=== PATIENT | female | born 1965 | race Caucasian/White ===

== ENCOUNTER 2020-09-28 12:29 | Emergency (ER) | payer OTHER, SELFPAY ==
[2020-09-28 12:40] VITALS: BP 167/107; PULSE 74; RESP 16; TEMP 37.1; O2SAT 97; BMI 39.8
--- NOTE | 2020-09-28 12:58 | PC.NURSE ---
gel foam, 2x2 gauze and coban applied to L thumb for pressure dressing per ER MD direction. will continue to monitor
--- NOTE | 2020-09-28 13:30 | HMH.EDGENADL ---
ED Disposition Clinical Impression: Avulsion of skin of thumb Qualifiers: Encounter type: initial encounter Laterality: left Qualified Code(s): S61.002A - Unspecified open wound of left thumb without damage to nail, initial encounter Disposition: Home, Self-Care Condition on Discharge: Good Additional Instructions: Keep bandage on for 2 days, then remove and begin gently cleaning with soap and water daily. Recheck by primary care provider in 4 to 5 days. Elevate your hand today. Tylenol for pain. Return to the emergency room if you bleed through your bandage. Referrals: Mal Funk MD [Primary Care Provider] - - Critical Care Critical Care Time: No Attestation: On 09/28/20, the high probability of a clinically significant, sudden or life threatening deterioration of the following system(s) required my full and direct attention, intervention and personal management. The time I documented below is in addition to time spent performing reported procedures but includes the following listed in this critical care notation. Medical Decision Making - Yuri Inquiry Pt receiving controlled substance: No Vital Signs: 09/28/20 12:40 09/28/20 13:44 09/28/20 14:07 Temperature 98.7 F Temperature Source Oral Pulse Rate [Right Radial] 74 71 61 Respiratory Rate 16 16 Blood Pressure [Right Arm] 167/107 H 145/98 H 148/95 H Blood Pressure Mean [Right Arm] 127 113 112 Blood Pressure Source [Right Arm] Automatic Cuff Automatic Cuff Automatic Cuff Blood Pressure Position [Right Arm] Sitting Sitting Sitting 02 Sat by Pulse Oximetry 97 97 96 Oxygen Delivery Method Room Air Room Air Room Air Orders (Tests/Meds): ED MEDICATIONS Discontinued Medications Generic Name Dose Route Start Last Admin Trade Name Freq PRN Reason Stop Dose Admin Gelatin 1 each 09/28/20 12:54 09/28/20 12:57 Gelatin Absorbable Sponge (Size 4) TP 09/28/20 12:55 1 each ONCE ONE Administration Tetanus/Reduced Diphtheria/Acell Pertussis 0.5 ml 09/28/20 12:53 09/28/20 13:23 Tet/Diphth/Pert-Adult 0.5ml Syringe IM 09/28/20 12:54 0.5 ml .ONCE ONE Administration - Reevaluation(s) Time: 13:38 Reevaluation #1: Bandag is dry, has not bled through bandage at this time. Time: 14:13 Reevaluation #3: Bandage remains dry General Adult HPI - General Chief complaint: Skin/Abscess/Foreign Body Stated complaint: AO 1225 lac to L thumb Time Seen by Provider: 09/28/20 13:25 Mode of Arrival: Ambulatory Limitations: No Limitations Description of Symptoms (Recalled from ER Triage Doc. by RN): Pt reports she cut her finger on a slicer lastnight approx 8:30pm. Pt has an avulsed area to L thumb. Pt reports unable to get area to stop bleeding. Pt states she is not on blood thinners. Pt was seen at urgent care at [place] today and was sent to ER for further evaluation. - History of Present Illness HPI narrative: Cut her left thumb on a mandolin while slicing vegetables yesterday evening. She has had bleeding off and on since then. She went to urgent care this morning and they told her it could not be sutured to come to the emergency department. Her last tetanus immunization is unknown. - Related Data Home Medications Medication Instructions Recorded Confirmed ALPRAZolam [Alprazolam 0.25mg 0.25 mg PO DIRECTED 09/28/20 09/28/20 Tab] Atorvastatin Calcium [Lipitor 20mg 20 mg PO HS 09/28/20 09/28/20 Tab] Desvenlafaxine Succinate [Pristiq] 50 mg PO DIRECTED 09/28/20 09/28/20 Ferrous Sulfate [High Potency Iron] 27 mg PO DIRECTED 09/28/20 09/28/20 Metoprolol Succinate [Metoprolol 100 mg PO DAILY 09/28/20 09/28/20 Succinate 100mg Tablet*] Allergies Allergy/AdvReac Type Severity Reaction Status Date / Time No Known Allergies Allergy Verified 09/28/20 12:49 [facility] History - Hepatitis A Screen Drug use history?: No High risk sexual behaviors?: No History of sexually transmitted i
[2020-09-28 13:44] VITALS: BP 145/98; PULSE 71; RESP 16; O2SAT 97
[2020-09-28 14:07] VITALS: BP 148/95; PULSE 61; O2SAT 96
[2020-09-28 14:17] VITALS: BP 148/95; PULSE 58; RESP 18; TEMP 37.1; O2SAT 96
== END 2020-09-28 14:18 | disposition home or self-care (01) ==
PROVIDERS: Emergency Provider Emergency Medicine; PCP Family Medicine
DX: S61.002A Unspecified open wound of left thumb without damage to nail, initial encounter (principal); W26.8XXA Contact with other sharp object(s), not elsewhere classified, initial encounter; Y92.019 Unspecified place in single-family (private) house as the place of occurrence of the external cause; Z23 Encounter for immunization
CPT/HCPCS: 90715; 99282

== ENCOUNTER → 2021-04-28 09:44 | Outpatient (CLI) | payer OTHER, SELFPAY ==
--- NOTE | 2021-04-28 09:54 | MM_ITS ---
PROCEDURE: MM DIG SCREENING MAMM BI W/CAD Digital Breast Tomosynthesis Included CLINICAL INDICATION: SCREENING COMPARISON: MG SCREENING MAMMOGRAPHY BILATERAL 3D from 04/23/2020 TECHNIQUE: Standard CC and MLO images and 3D Tomosynthesis was obtained. R2 CAD reviewed. FINDINGS: Average fibroglandular tissue. No malignant appearing mass or malignant-appearing microcalcification. The benign-appearing nodular density is present in the outer aspect of the left breast at 5 mm not significantly changed. IMPRESSION: Benign findings, no evidence of malignancy BI-RAD Category: 2 Benign Finding FOLLOW-UP: 1 YR 1 Year Follow-up (A letter has been sent to the patient regarding results of the study.) Dictated by: Surendra Gooden MD 05/01/2021 12:38 Surendra Gooden MD in [place] 05/01/2021 12:38
== END ==
PROVIDERS: PCP Family Medicine; Visit Provider Family Medicine
DX: Z12.31 Encounter for screening mammogram for malignant neoplasm of breast (principal)
CPT/HCPCS: 77063; 77067

== ENCOUNTER 2021-07-10 11:02 | Emergency (ER) | payer OTHER, SELFPAY ==
[2021-07-10 11:03] VITALS: BP 143/91; PULSE 61; RESP 18; TEMP 37; O2SAT 98; BMI 37.9
--- NOTE | 2021-07-10 12:03 | HMH.EDUTC ---
[facility] [place] Clinical Impression: Bronchitis Sinusitis Qualifiers: Sinusitis location: unspecified location Chronicity: unspecified Qualified Code(s): J32.9 - Chronic sinusitis, unspecified Disposition: Home, Self-Care Condition on Discharge: Good Instructions: Sinusitis, Acute Bronchitis, DI for Sinusitis Additional Instructions: *Monitor Temp, Over the counter Motrin or Tylenol as directed/as needed Tylenol every 4 hours and Motrin every 6 hours (as long as your family doctor has told you that you can take it) for fever or pain. and straight to ER if unable to lower temp less than 101.0 after medication given *Warm salt water gargles may help to soothe the throat *Throat Lozenges *Warm fluids like tea with honey may help to soothe the throat *Sleep elevated *Humidifier/Vaporizer Your throat swab was sent for culture. Those results are typically sent to your primary care. Be sure to follow up in 2-3 days with your family doctor/primary care physician if no improvement so they can review those result and treat if necessary. If you don?t have a primary care doctor, I recommend you get one but in the mean time, you will have to return to a walk in clinic Follow up IMMEDIATELY for new or worsening symptoms or no Noticeable improvement over the next 48-72 hours. 911 for difficulty breathing or swallowing You were tested for today for COVID19 your test result should be back in the next 24-48 hours, you was given a handout on how to log onto the [facility] portal to get your results if you have trouble logging in you may call You was given a handout with instructions for Self Quarantine and Self isolation for while you wait on test results and what to do if they are positive If you are positive the Health Dept will be contacting you also Make sure to take your Vitamins Vit. C Vit D and Zinc if you can take them Prescriptions: predniSONE [Deltasone 10mg tablet] 10 mg PO BID 5 Days #10 tab Transmission Status: Received by [id number] Azithromycin [Z-Herman 250mg Tab] 250 mg PO DIRECTED #6 tab Transmission Status: Received by [id number] Referrals: Mal Funk MD [Primary Care Provider] - As needed Medical Decision Making - Yuri Inquiry Pt receiving controlled substance: No Yuri was queried for this patient: No Vital Signs: 07/10/21 11:03 07/10/21 12:43 Temperature 98.6 F 98.6 F Temperature Source Oral Pulse Rate 61 Pulse Rate [Right Radial] 61 Respiratory Rate 18 18 Blood Pressure 143/91 H Blood Pressure [Right Arm] 143/91 H Blood Pressure Mean [Right Arm] 108 02 Sat by Pulse Oximetry 98 Oxygen Delivery Method Room Air - Lab Data Lab results reviewed: Yes: I reviewed the patient's lab results. Lab Results 07/10/21 12:10: Strep Scn Rapid Clinic Negative Orders (Tests/Meds): ORDERS Category Date Time Status Strep Screen Confirmation Stat Micro 07/10/21 12:10 Received Medical Decision Narrative: Patient states that she has taken azithromycin and prednisone in the past without complications or reactions [facility] [place] - General Stated complaint: chest congestion, cough Time Seen by Provider: 07/10/21 12:03 Mode of Arrival: Ambulatory Source of Information: Patient Limitations: No Limitations Description of Symptoms (Recalled from Triage Doc. 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
[2021-07-10 12:26] LABS: UTC Strep Screen (Rapid) Negative (Negative)
[2021-07-10 12:43] VITALS: BP 143/91; PULSE 61; RESP 18; TEMP 37; O2SAT 98
== END 2021-07-10 12:44 | disposition home or self-care (01) ==
PROVIDERS: Emergency Provider Nurse Practitioner; PCP Family Medicine
DX: J40 Bronchitis, not specified as acute or chronic (principal); J32.9 Chronic sinusitis, unspecified
CPT/HCPCS: 87880; 99203; C9803; G0463; U0003; U0005

== ENCOUNTER 2021-11-05 09:23 | Emergency (ER) | payer OTHER, SELFPAY ==
[2021-11-05 09:36] VITALS: BP 201/109; PULSE 84; RESP 16; TEMP 37.2; O2SAT 95; BMI 39.8
[2021-11-05 09:52] LABS: UTC Influenza A Antigen Negative (Negative); UTC Influenza B Antigen Negative (Negative)
--- NOTE | 2021-11-05 10:16 | HMH.EDUTC ---
[facility] [place] Impression: Viral syndrome, Exposure to COVID-19 virus Pharyngitis Qualifiers: Pharyngitis/tonsillitis etiology: unspecified etiology Qualified Code(s): J02.9 - Acute pharyngitis, unspecified Disposition: Home, Self-Care Condition on Discharge: Good Instructions: DI for COVID-19 (Suspected or Confirmed ), Preventing the Spread of Coronavirus Discharge Instructions Additional Instructions: Drink plenty of fluids. Take tylenol or ibuprofen for pain or fever. Take the medications as directed. Follow up with your regular doctor. GO TO THE ER FOR ANY WORSENING SYMPTOMS Quarantine until you know the results of your covid-19 test. Notify your school or workplace of your results and follow their instructions regarding return to work/school. The cough medication (promethazine dm) will make you drowsy, so don't drive or operate heavy machinery after taking it. Prescriptions: Promethazine/Dextromethorphan [Promethazine-Dm Syrup] 5 ml PO Q6HP PRN #240 ml PRN Reason: Cough Transmission Status: Received by [id number] Ondansetron [Zofran 4mg ODT] 4 mg PO Q8HP PRN #20 tab PRN Reason: Nausea Transmission Status: Received by [facility] Azithromycin [Z-Herman 250mg Tab*] 250 mg PO UD DOSE PK #6 tab Transmission Status: Received by [id number] Referrals: Mal Funk MD [Primary Care Provider] - Forms: Work/School Release Time of Disposition: 10:24 Medical Decision Making - Medical Records Medical records reviewed: No: I reviewed the patient's medical records. - Yuri Inquiry Pt receiving controlled substance: No Vital Signs: 11/05/21 09:36 Temperature 98.9 F Temperature Source Oral Pulse Rate [Left] 84 Respiratory Rate 16 Blood Pressure [Right Arm] 201/109 H Blood Pressure Mean [Right Arm] 139 02 Sat by Pulse Oximetry 95 - Lab Data Lab results reviewed: Yes: I reviewed the patient's lab results. Lab Results 11/05/21 09:50: Influenza Type A Ag Negative, Influenza Type B Ag Negative Orders (Tests/Meds): ORDERS Category Date Time Status Covid-19 Nasal PCR ([facility]) Routine Lab 11/05/21 09:49 Received Strep Scrn Group A (Rapid) Stat Lab 11/05/21 09:50 Received [facility] [place] - General Stated complaint: covid exposed, fever, cough, body aches, h/a Time Seen by Provider: 11/05/21 10:16 Mode of Arrival: Ambulatory Source of Information: Patient Limitations: No Limitations Description of Symptoms (Recalled from Triage Doc. by RN): pt c/o fever, ODOM, congestion, cough, weakness, nausea and loss of appetite x3 days. HEENT Symptoms (Recalled from RN notes): Yes (ODOM and congestion) Resp Symptoms (Recalled from RN notes): Yes (cough) Skin Symptoms (Recalled from RN notes): No MS Symptoms (Recalled from RN notes): No Functional Status (Recalled from RN notes): wnl - History of Present Illness Provider Complaint: She states that for the past 3 days she has had chest congestion, sore throat, sinus congestion, chills, fever and body aches. She has been fully vaccinated against covid-19. She denies any shortness of breath. She denies any known exposure to covid-19. - Related Data Home Medications Medication Instructions Recorded Confirmed ALPRAZolam [Alprazolam 0.25mg 0.25 mg PO DIRECTED 09/28/20 09/28/20 Tab] Atorvastatin Calcium [Lipitor 20mg 20 mg PO HS 09/28/20 09/28/20 Tab] Desvenlafaxine Succinate [Pristiq] 50 mg PO DIRECTED 09/28/20 09/28/20 Ferrous Sulfate [High Potency Iron] 27 mg PO DIRECTED 09/28/20 09/28/20 Metoprolol Succinate [Metoprolol 100 mg PO DAILY 09/28/20 09/28/20 Succinate 100mg Tablet*] Previous Rx's Medication Instructions Recorded Azithromycin [Z-Herman 250mg Tab] 250 mg PO DIRECTED #6 tab 07/10/21 predniSONE [Deltasone 10mg tablet] 10 mg PO BID 5 Days #10 tab 07/10/21 Azithromycin [Z-Herman 250mg Tab*] 250 mg PO UD DOSE PK #6 tab 11/05/21 Ondansetron [Zofran 4mg
[2021-11-05 10:42] VITALS: BP 190/95; PULSE 79; RESP 20; TEMP 37.6
[2021-11-05 11:40] LABS: Strep Scrn Group A (Rapid) Negative (Negative)
== END 2021-11-05 10:43 | disposition home or self-care (01) ==
PROVIDERS: Emergency Provider Nurse Practitioner Family; PCP Family Medicine
DX: U07.1 COVID-19; B34.9 Viral infection, unspecified
CPT/HCPCS: 87430; 87804; 99203; C9803; G0463; U0003; U0005

== ENCOUNTER → 2023-06-04 12:00 | Outpatient (CLI) | payer OTHER, SELFPAY ==
--- NOTE | 2023-06-04 12:08 | XR_ITS ---
FINAL REPORT CLINICAL HISTORY: wheezing, cough FINDINGS: TWO-VIEW CHEST The heart size is normal. The mediastinum is normal. The lungs are clear. There is no pneumothorax. IMPRESSION: No acute cardiopulmonary process. Reviewed, Interpreted and Dictated by Fausto Fair MD Transcribed by Amelie Navas Authenticated and . [facility]
== END ==
PROVIDERS: PCP Family Medicine; Visit Provider Student in an Organized Health Care Education/Training Program
DX: R06.2 Wheezing (principal); R05.9 Cough, unspecified; J02.9 Acute pharyngitis, unspecified
CPT/HCPCS: 71046; 87070; 87635

== ENCOUNTER → 2023-06-04 23:33 | Outpatient (CLI) | payer OTHER, SELFPAY | PROVIDERS: PCP Family Medicine; Visit Provider Student in an Organized Health Care Education/Training Program | DX: J02.9 Acute pharyngitis, unspecified (principal); R09.89 Other specified symptoms and signs involving the circulatory and respiratory systems | CPT/HCPCS: 87635 ==